=== PATIENT | male | born 1955 | race Caucasian/White ===

== ENCOUNTER 2020-06-15 07:55 | Outpatient (REF) | payer OTHER, SELFPAY ==
--- NOTE | ~2020-06-15 | US_ITS ---
EXAMINATION: US RETROPERITONEAL LIMITED (RENAL ONLY) CLINICAL INFORMATION: Renal stone. COMPARISON: Ultrasound renals only 11/21/2019 and 10/18/2019. X-ray KUB 11/06/2019. TECHNIQUE: Real-time imaging of the kidneys. FINDINGS: RIGHT KIDNEY: 13.6 x 5.9 x 5.4 cm (SAG x AP x TRV). The kidney is normal in size, contour, and echogenicity. Renal cortical thickness is normal. No renal calculi or hydronephrosis. There is anechoic an cyst lower pole measuring 1.0 is 1.8 x 0.8 cm. No additional lesions seen. LEFT KIDNEY: 12.9 x 5.5 x 5.4 cm (SAG x AP x TRV). The kidney is normal in size, contour, and echogenicity. Renal cortical thickness is normal. No renal calculi or hydronephrosis. There are multiple peripelvic cysts versus focal caliectasis. A lower pole cyst measures 1.8 x 1.2 x 2 point 0.6 cm. 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 An echogenic calcification midpole measures 0.3 x 0.3 x 0.2 cm. The bladder is unremarkable. US/US renal BI IMPRESSION: Anechoic cyst lower pole right kidney. Multiple small peripelvic cysts versus focal caliectasis in left kidney. The largest cyst lower pole measures 1.8 x 1.2 x 1.6 cm. Small cyst lower pole right kidney measuring 1.8 cm.
== END 2020-06-15 07:56 | disposition home or self-care (01) ==
LOC: HO.US 07:55
PROVIDERS: PCP Internal Medicine; Visit Provider Urology
DX: N20.0 Calculus of kidney (principal)
CPT/HCPCS: 76775

== ENCOUNTER → 2020-07-30 15:03 | Outpatient (BNVA) | payer OTHER, SELFPAY | PROVIDERS: PCP Internal Medicine; Visit Provider Urology ==